=== PATIENT | female | born 2000 | race Caucasian/White ===

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

== ENCOUNTER 2019-04-13 21:16 | Emergency (ER) | payer SELFPAY ==
[2019-04-13 21:50] LABS: RAPID STREP SCREEN Negative (Negative)
--- NOTE | 2019-04-13 23:55 | ED Physician Documentation ---
PD HPI HEENT - Stated complaint Stated Complaint: SPOTS ON THROAT - Chief complaint Chief Complaint: Heent - History obtained from History obtained from: Patient - History of Present Illness Timing - onset: How many weeks ago (1) Timing - details: Gradual onset Location: Throat Improves: Nothing Worsens: Swalllowing Associated symptoms: Fever (Tmax 102, but this was last week; hasn't had fever for at least several days) Recently seen: Not recently seen - Additional information Additional information: c/o 1 week sore throat which initially was associated with fever, but fever has resolved x several days while the sore throat persists. She spat out some blood today Review of Systems Constitutional: reports: Fever Ears: denies: Ear pain Throat: reports: Sore throat Respiratory: denies: Dyspnea, Cough Skin: denies: Rash PD PAST MEDICAL HISTORY - Past Medical History Cardiovascular: Murmur - Past Surgical History Past Surgical History: No - Present Medications Home Medications: Ambulatory Orders Medication Instructions Recorded Confirmed Etonogestrel [Nexplanon] 68 mg SQ ONCE 04/13/19 04/13/19 - Allergies Allergies/Adverse Reactions: Allergies Allergy/AdvReac Type Severity Reaction Status Date / Time No Known Drug Allergies Allergy Verified 04/13/19 21:30 - Social History Does the pt smoke?: No Smoking Status: Former smoker Does the pt drink ETOH?: No Does the pt have substance abuse?: No - Immunizations Immunizations are current?: Yes PD ED PE NORMAL - Vitals Vital signs reviewed: Yes - General General: Alert and oriented X 3, No acute distress, Well developed/nourished - HEENT HEENT: Ears normal, Moist mucous membranes - Neck Neck: Supple, no meningeal sign - Cardiac Cardiac: RRR, No murmur - Respiratory Respiratory: No respiratory distress, Clear bilaterally PD ED PE EXPANDED - HEENT HEENT: Swollen tonsils (mild, bilateral), Tonsillar exudate (moderate, bilaterally) Results - Vitals Vitals: Vital Signs - 24 hr 04/13/19 04/14/19 21:24 00:30 Temperature 36.7 C 36.7 C Heart Rate 84 96 Respiratory 16 16 Rate Blood Pressure 132/83 H 151/101 H O2 Saturation 100 97 Oxygen O2 Source Room air - Labs Labs: Laboratory Tests 04/13/19 21:33 Group A Strep Rapid Negative PD MEDICAL DECISION MAKING - ED course Complexity details: reviewed results, considered differential, d/w patient ED course: rapid strep results negative. We discussed option of one-time dose of steroid (decadron), but she declines this. I also discussed other possible causes such as mononucleosis, other viruses, and other bacterial causes. I explained that the swab will be cultured and she will be called if it results positive. We discussed option of mono test, but she declines this. Departure - Departure Disposition: 01 Home, Self Care Clinical Impression: Pharyngitis Condition: Good Instructions: ED Pharyngitis Viral Report Pending Follow-Up: Leia Thompson ARNP [Primary Care Provider] - Discharge Date/Time: 04/14/19 00:20
[2019-04-14 00:31] VITALS: BP 151/101
== END 2019-04-14 00:20 | disposition home or self-care (01) ==
LOC: ED 21:16
DX: J02.9 Acute pharyngitis, unspecified (principal); Z87.891 Personal history of nicotine dependence
CPT/HCPCS: 87070; 87430; 99282; 99283

== ENCOUNTER 2019-04-17 08:00 | Outpatient (CLI) | payer MEDICAID ==
[2019-04-17 17:15] LABS: BASOPHILS % (AUTO) 0.3 %; EOSINOPHILS % (AUTO) 0.6 %; HGB - HEMOGLOBIN 12.9 g/dL (12.0-16.0); LYMPHOCYTES # (AUTO) 1.8 10^3/uL (1.5-3.5); LYMPHOCYTES % (AUTO) 25.2 %; MEAN CORPUSCULAR HGB CONC 31.6 g/dL (32.0-36.0); MEAN CORPUSCULAR VOLUME 88.5 fL (81.0-99.0); MEAN PLATELET VOLUME 9.5 fL (7.9-10.8); MONOCYTES # (AUTO) 0.5 10^3/uL (0.0-1.0); MONOCYTES % (AUTO) 6.8 %; NEUTROPHILS # (AUTO) 4.7 10^3/uL (1.5-6.6); NEUTROPHILS % (AUTO) 66.8 %; PLT - PLATELET COUNT 382 10^3/uL (130-450); RED BLOOD COUNT 4.61 10^6/uL (4.20-5.40); RED CELL DISTRIBUTION WIDTH 13.2 % (12.0-15.0); WHITE BLOOD COUNT 7.1 x10^3/uL (4.8-10.8)
[2019-04-17 18:18] LABS: ALBUMIN 4.6 g/dL (3.2-5.5); ALBUMIN/GLOBULIN RATIO 1.4 (1.0-2.2); ALKALINE PHOSPHATASE 43 IU/L (42-121); ALT ALANINE AMINOTRANSFERASE 18 IU/L (10-60); AST ASPARTATE AMINOTRANSFERASE 18 IU/L (10-42); BILIRUBIN,TOTAL 0.6 mg/dL (0.2-1.0); BUN - BLOOD UREA NITROGEN 14 mg/dL (6-20); CALCIUM 9.1 mg/dL (8.5-10.3); CARBON DIOXIDE - CO2 26 mmol/L (21-32); CHLORIDE 102 mmol/L (101-111); CREATININE 0.8 mg/dL (0.4-1.0); GFR - MDRD 92 (>89); GLUCOSE 120 mg/dL (70-100); SODIUM 135 mmol/L (135-145)
[2019-04-17 18:20] LABS: CRP - C-REACTIVE PROTEIN < 1.0 mg/dL (0-1.0)
== END 2019-04-17 23:59 | disposition home or self-care (01) ==
LOC: LAB.S 08:00
PROVIDERS: ATTEND Physician Assistant Medical
DX: J02.9 Acute pharyngitis, unspecified (principal); R53.82 Chronic fatigue, unspecified
CPT/HCPCS: 36415; 80053; 82728; 85025; 85651; 86140; 86308; 86665

== ENCOUNTER 2019-04-20 14:40 | Emergency (ER) | payer MEDICAID ==
[2019-04-20 14:50] VITALS: BP 135/89
--- NOTE | 2019-04-20 15:03 | ED Physician Documentation ---
History of Present Illness - Stated complaint Stated Complaint: THROAT SWELLING - Chief complaint Chief Complaint: Heent - Additonal information Additional information: This is a 18-year-old female presents with tonsil swelling which is been ongoing for a month. She started with fever cough and sore throat, and her other symptoms have gotten better but her sore throat has persisted and she has continuous swelling in the back of her throat. She is also noticed some white spots on her tonsils. She had testing for strep which is reportedly negative and also mono testing which was lying. Her throat is still quite sore so she returns to the emergency department. Review of Systems Constitutional: denies: Fever Throat: reports: Sore throat PD PAST MEDICAL HISTORY - Past Medical History Cardiovascular: Murmur - Past Surgical History Past Surgical History: No - Present Medications Home Medications: Ambulatory Orders Medication Instructions Recorded Confirmed Etonogestrel [Nexplanon] 68 mg SQ ONCE 04/13/19 04/20/19 Amoxicillin 500 mg PO BID #20 capsule 04/20/19 Dexamethasone 10 mg PO ONCE #5 tablet 04/20/19 - Allergies Allergies/Adverse Reactions: Allergies Allergy/AdvReac Type Severity Reaction Status Date / Time No Known Drug Allergies Allergy Verified 04/20/19 14:50 - Social History Does the pt smoke?: No Smoking Status: Never smoker Does the pt drink ETOH?: No Does the pt have substance abuse?: No - Immunizations Immunizations are current?: Yes PD ED PE NORMAL - Vitals Vital signs reviewed: Yes - General General: Alert and oriented X 3 - HEENT HEENT: Other (Tonsils are 3+ erythematous edematous with exudate. They are symmetric and uvula is midline) - Neck Neck: Supple, no meningeal sign - Cardiac Cardiac: RRR - Respiratory Respiratory: No respiratory distress - Extremities Extremities: No deformity - Neuro Neuro: Alert and oriented X 3 Results - Vitals Vitals: Vital Signs - 24 hr 04/20/19 14:46 Temperature 36.8 C Heart Rate 78 Respiratory 18 Rate Blood Pressure 135/89 H O2 Saturation 98 Oxygen O2 Source Room air PD MEDICAL DECISION MAKING - ED course ED course: Patient presents with persistent tonsillitis, she did have negative strep recently but she states that a swab was more in her mouth and on the back of her throat. I reviewed the microbiology which showed mixed oral kenneth. She has significant tonsillar edema with exudates, and given her overall clinical picture I am concerned for bacterial tonsillitis. Given the persistence of her symptoms for multiple weeks I think that she warrants a course of antibiotics, I prescribed amoxicillin. I also prescribed her a dose of dexamethasone. She has no signs of peritonsillar abscess or more serious infection at this time. I discussed return precautions, and PCP follow-up and patient was discharged home Departure - Departure Disposition: 01 Home, Self Care Clinical Impression: Pharyngitis Qualifiers: Pharyngitis/tonsillitis etiology: unspecified etiology Qualified Code(s): J02.9 - Acute pharyngitis, unspecified Condition: Good Instructions: ED Strep Pharyngitis Poss Follow-Up: Leia Thompson ARNP [Primary Care Provider] - (With any persistent symptoms) Prescriptions: Amoxicillin 500 mg PO BID #20 capsule Dexamethasone 10 mg PO ONCE #5 tablet Comments: You appear to have a tonsillitis. Given that it has not improved, we will treat with antibiotics for what appears to be a bacterial infection. I am prescribing amoxicillin as well as a steroid. If you are having worsening symptoms such as changes in your voice, swelling on one side of your throat or neck, or other concerning symptoms return to the emergency department.
== END 2019-04-20 15:24 | disposition home or self-care (01) ==
LOC: ED 14:40
DX: J03.90 Acute tonsillitis, unspecified (principal)
CPT/HCPCS: 99282; 99284

== ENCOUNTER 2019-11-24 21:43 | Outpatient (CLI) | payer MEDICAID | END 2019-11-24 21:44 | disposition critical access hospital (66) | LOC: EMS 21:43 | PROVIDERS: ATTEND Surgery | DX: R51 Headache (principal); R11.2 Nausea with vomiting, unspecified | CPT/HCPCS: A0425; A0429 ==

== ENCOUNTER 2019-11-24 22:07 | Emergency (ER) | payer MEDICAID ==
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
[2019-11-24] MEDS ORDERED: SODIUM CHLORIDE 0.9% 1,000 ML IV STA (23:14)
[2019-11-24] MEDS ORDERED: ONDANSETRON 4 MG/2 ML VIAL IVP STA (23:14)
[2019-11-24] MEDS ORDERED: KETOROLAC 30 MG/ML VIAL IVP STA (23:15)
[2019-11-24 23:36] LABS: BASOPHILS % (AUTO) 0.4 %; HGB - HEMOGLOBIN 13.1 g/dL (12.0-16.0); LYMPHOCYTES # (AUTO) 1.1 10^3/uL (1.5-3.5); MEAN CORPUSCULAR HEMOGLOBIN 29.2 pg (27.0-31.0); MEAN CORPUSCULAR HGB CONC 34.1 g/dL (32.0-36.0); MEAN CORPUSCULAR VOLUME 85.7 fL (81.0-99.0); MEAN PLATELET VOLUME 9.1 fL (7.9-10.8); MONOCYTES # (AUTO) 0.4 10^3/uL (0.0-1.0); MONOCYTES % (AUTO) 3.8 %; NEUTROPHILS % (AUTO) 85.5 %; PLT - PLATELET COUNT 349 10^3/uL (130-450); RED BLOOD COUNT 4.48 10^6/uL (4.20-5.40); RED CELL DISTRIBUTION WIDTH 12.5 % (12.0-15.0); WHITE BLOOD COUNT 10.6 x10^3/uL (4.8-10.8)
[2019-11-24 23:49] LABS: ALBUMIN 4.5 g/dL (3.2-5.5); ALBUMIN/GLOBULIN RATIO 1.2 (1.0-2.2); BILIRUBIN,TOTAL 0.5 mg/dL (0.2-1.0); CALCIUM 9.1 mg/dL (8.5-10.3); CREATININE 0.9 mg/dL (0.4-1.0); TOTAL PROTEIN 8.4 g/dL (6.7-8.2)
[2019-11-25 01:30] LABS: BILIRUBIN,URINE NEGATIVE (NEGATIVE); GLUCOSE, URINE (UA) NEGATIVE (NEGATIVE); KETONES,URINE (UA) 15 mg/dL (NEGATIVE); LEUKOCYTE ESTERASE, URINE NEGATIVE (NEGATIVE); NITRITE,URINE NEGATIVE (NEGATIVE); OCCULT BLOOD,URINE TRACE-LYSE (NEGATIVE); PROTEIN,URINE NEGATIVE (NEGATIVE); UROBILINOGEN,URINE 0.2 (NORMAL) E.U./dL (NORMAL)
[2019-11-25 01:32] LABS: CLARITY,URINE CLEAR (CLEAR); HCG UR QUAL NEGATIVE
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
[2019-11-25 08:06] VITALS: BP 143/66
== END 2019-11-25 10:15 | disposition home or self-care (01) ==
LOC: EDUNIT# → ED 22:07
DX: R51 Headache (principal); Y04.8XXA Assault by other bodily force, initial encounter; Y92.009 Unspecified place in unspecified non-institutional (private) residence as the place of occurrence of the external cause; Z59.0 Homelessness
CPT/HCPCS: 36415; 70450; 80053; 80320; 81001; 81003; 81025; 83690; 85025; 87086; 96361; 96374; 96375; 99284

== ENCOUNTER 2020-03-11 15:40 | Outpatient (CLI) | payer MEDICAID | END 2020-03-11 23:59 | disposition home or self-care (01) | LOC: LAB.R 15:40 | PROVIDERS: ATTEND Physician Assistant | DX: J03.90 Acute tonsillitis, unspecified (principal); Z20.828 Contact with and (suspected) exposure to other viral communicable diseases | CPT/HCPCS: 87070 ==

== ENCOUNTER 2020-04-16 14:30 | Outpatient (CLI) | payer MEDICAID ==
[2020-04-16 19:54] LABS: CANDIDA GROUP DNA POSITIVE (NEGATIVE); CANDIDA KRUSEI DNA NEGATIVE (NEGATIVE); TRICHOMONAS VAGINALIS DNA NEGATIVE (NEGATIVE)
[2020-04-16 22:20] LABS: TRICHOMONAS VAGINALIS DNA UNRESOLVED (NEGATIVE)
== END 2020-04-16 23:59 | disposition home or self-care (01) ==
LOC: LAB.R 14:30
PROVIDERS: ATTEND Family Medicine
DX: R21 Rash and other nonspecific skin eruption (principal)
CPT/HCPCS: 81599; 87255; 87491; 87591; 87661; 87801

== ENCOUNTER 2020-08-05 09:59 | Emergency (ER) | payer MEDICAID ==
--- OUTSIDE RECORDS SUMMARY | 2020-08-05 10:32 | EXTERNAL MEDICAL SUMMARY RPT | Continuity of Care Document ---
:2000 Demographics Phone Unavailable Preferred Language Unknown Marital Status Unknown Orthodoxy Affiliation Unknown Race Unknown Ethnic Group Unknown Author Organization [facility] Address [address] [id number] Phone Social History date description facility [id number]
--- NOTE | 2020-08-05 10:56 | XRAY Report ---
PROCEDURE: Ankle 3 View RT INDICATIONS: ANKLE PAIN TECHNIQUE: 3 views of the ankle were acquired. COMPARISON: 04/25/2017 FINDINGS: Bones: No fractures or dislocations. Ankle mortise is normally aligned. No suspicious bony lesions . Soft tissues: No tibiotalar joint effusion. Achilles tendon appears normal. Lateral ankle soft tis haris swelling is seen. IMPRESSION: No acute ankle fracture or dislocation. Lateral ankle soft tissue swelling. Reviewed by: Jose De Jesus Ashley MD on 08/05/2020 10:55 AM PDT Approved by: Jose De Jesus Ashley MD on 08/05/2020 10:55 AM PDT Station ID: [id number]
--- NOTE | 2020-08-05 12:08 | ED Physician Documentation ---
History of Present Illness - Stated complaint Stated Complaint: RT ANKLE INJ - Chief complaint Chief Complaint: Trauma Ext - History obtained from History obtained from: Patient - Additonal information Additional information: 19-year-old woman presents with right outer ankle swelling after rolling it while walking today. She was unable to bear weight immediately afterward and is unable to bear weight now. Pain is constant, sudden onset, nonradiating localized to the external ankle, worse with range of motion. Denies numbness or weakness.Denies foot pain or other injury. Review of Systems Skin: denies: Lesions, Abrasion (s) Musculoskeletal: reports: Extremity pain, Joint pain, Extremity swelling Neurologic: denies: Focal weakness, Numbness PD PAST MEDICAL HISTORY - Past Medical History Cardiovascular: Murmur Psych: Depression, Eating disorder - Past Surgical History Past Surgical History: No - Present Medications Home Medications: Ambulatory Orders Medication Instructions Recorded Confirmed Etonogestrel [Nexplanon] 68 mg SQ ONCE 04/13/19 04/20/19 Amoxicillin 500 mg PO BID #20 capsule 04/20/19 Dexamethasone 10 mg PO ONCE #5 tablet 04/20/19 Ondansetron Odt [Zofran] 4 mg TL Q6H PRN #10 tablet 11/25/19 - Allergies Allergies/Adverse Reactions: Allergies Allergy/AdvReac Type Severity Reaction Status Date / Time No Known Drug Allergies Allergy Verified 08/05/20 10:22 - Social History Does the pt smoke?: Yes Smoking Status: Current every day smoker Does the pt drink ETOH?: No Does the pt have substance abuse?: No Substance Use and Type: Marijuana - Immunizations Immunizations are current?: Yes PD ED PE NORMAL - Vitals Vital signs reviewed: Yes - General General: Alert and oriented X 3, No acute distress, Well developed/nourished - Extremities Extremities: No deformity, Other (Swelling to right lateral malleolus. Posterior right lateral mall tender to palpation. Tender with range of motion of the ankle. Otherwise nontender. Unable to bear weight.) - Neuro Neuro: Alert and oriented X 3, No motor deficit, No sensory deficit - Psych Psych: Normal mood, Normal affect Results - Vitals Vitals: Vital Signs - 24 hr 08/05/20 10:20 Temperature 36.0 C L Heart Rate 75 Respiratory 20 Rate Blood Pressure 137/91 H O2 Saturation 96 Oxygen O2 Source Room air PD MEDICAL DECISION MAKING - ED course ED course: 19-year-old woman presents with moderate severity ankle swelling s/p injury. X- ray without any evidence of fracture however We will have her follow-up with orthopedics in 1 week for repeat x-ray. Strict return precautions given. Splint and crutches provided. Departure - Departure Disposition: 01 Home, Self Care Clinical Impression: Ankle injury Condition: Good Instructions: ED Sprain Ankle W X Ray Follow-Up: Brandon Arboleda MD [Provider Admit Priv/Credential] - Comments: You were seen in the emergency department for an ankle injury. Your x-ray did not show a break in the bone, but sometimes it can miss fractures. You should wear a splint and crutches until you follow-up with orthopedics in 1 week. Return to the emergency department if you have any new or worsening symptoms or other concerns.
[2020-08-05 12:54] VITALS: BP 147/84
== END 2020-08-05 12:54 | disposition home or self-care (01) ==
LOC: ED 09:59
DX: S99.911A Unspecified injury of right ankle, initial encounter (principal); X50.1XXA Overexertion from prolonged static or awkward postures, initial encounter; Y93.01 Activity, walking, marching and hiking; F17.200 Nicotine dependence, unspecified, uncomplicated
CPT/HCPCS: 99282; 99283

== ENCOUNTER 2020-11-26 14:01 | Emergency (ER) | payer MEDICAID ==
[2020-11-26 15:51] LABS: BASOPHILS % (AUTO) 0.5 %; EOSINOPHILS # (AUTO) 0.2 10^3/uL (0.0-0.7); EOSINOPHILS % (AUTO) 2.7 %; HGB - HEMOGLOBIN 12.9 g/dL (12.0-16.0); LYMPHOCYTES # (AUTO) 2.9 10^3/uL (1.5-3.5); LYMPHOCYTES % (AUTO) 33.3 %; MEAN CORPUSCULAR HEMOGLOBIN 28.4 pg (27.0-31.0); MEAN CORPUSCULAR HGB CONC 32.3 g/dL (32.0-36.0); MEAN CORPUSCULAR VOLUME 87.9 fL (81.0-99.0); MEAN PLATELET VOLUME 9.2 fL (7.9-10.8); MONOCYTES # (AUTO) 0.6 10^3/uL (0.0-1.0); MONOCYTES % (AUTO) 6.5 %; NEUTROPHILS # (AUTO) 4.9 10^3/uL (1.5-6.6); NEUTROPHILS % (AUTO) 56.6 %; PLT - PLATELET COUNT 355 10^3/uL (130-450); RED BLOOD COUNT 4.55 10^6/uL (4.20-5.40); RED CELL DISTRIBUTION WIDTH 13.4 % (12.0-15.0); WHITE BLOOD COUNT 8.6 x10^3/uL (4.8-10.8)
[2020-11-26 15:59] LABS: CALCIUM 9.2 mg/dL (8.5-10.3); CREATININE 0.8 mg/dL (0.4-1.0)
--- NOTE | 2020-11-26 15:59 | ED Physician Documentation ---
History of Present Illness - Stated complaint Stated Complaint: SWELLING FEET - Chief complaint Chief Complaint: Ext Problem - History obtained from History obtained from: Patient, Family - History of Present Illness Timing: How many days ago (4) - Additonal information Additional information: 20-year-old homeless female reports that over the past 4 days she has had swelling to both of her lower extremities. She started to feel some stretching pain and the skin is burning a little bit. She is uncertain why this is happened to her. She has not had this happen to her previously. She does sleep in her car with her feet in the dependent position. She denies any shortness of breath associated with this she denies any other intercurrent illness. She is worried about being late on her menstrual cycle. Review of Systems Constitutional: denies: Fever Eyes: denies: Decreased vision Ears: denies: Ear pain Nose: denies: Congestion Throat: denies: Sore throat Cardiac: reports: Pedal edema. denies: Chest pain / pressure, Palpitations, Calf pain Respiratory: denies: Dyspnea, Cough GI: denies: Abdominal Pain, Nausea, Vomiting, Constipation, Diarrhea : denies: Dysuria, Frequency PD PAST MEDICAL HISTORY - Past Medical History Cardiovascular: Murmur Psych: Depression, Eating disorder - Past Surgical History Past Surgical History: No - Present Medications Home Medications: Ambulatory Orders Medication Instructions Recorded Confirmed Etonogestrel [Nexplanon] 68 mg SQ ONCE 04/13/19 04/20/19 Amoxicillin 500 mg PO BID #20 capsule 04/20/19 Dexamethasone 10 mg PO ONCE #5 tablet 04/20/19 Ondansetron Odt [Zofran] 4 mg TL Q6H PRN #10 tablet 11/25/19 Furosemide [Lasix] 20 mg PO DAILY #10 tablet 11/26/20 - Allergies Allergies/Adverse Reactions: Allergies Allergy/AdvReac Type Severity Reaction Status Date / Time No Known Drug Allergies Allergy Verified 11/26/20 14:14 - Social History Does the pt smoke?: Yes Smoking Status: Current every day smoker Does the pt drink ETOH?: No Does the pt have substance abuse?: No - Immunizations Immunizations are current?: Yes PD ED PE NORMAL - Vitals Vital signs reviewed: Yes (Hypertensive) - General General: Alert and oriented X 3, No acute distress, Well developed/nourished - HEENT HEENT: Atraumatic, PERRL, EOMI - Neck Neck: Supple, no meningeal sign, No bony TTP - Cardiac Cardiac: RRR, Other (2 out of 6 holosystolic murmur left sternal border) - Respiratory Respiratory: No respiratory distress, Clear bilaterally - Abdomen Abdomen: Normal bowel sounds, Soft, Non tender, Non distended, No organomegaly - Back Back: No CVA TTP, No spinal TTP - Derm Derm: Normal color, Warm and dry, No rash - Extremities Extremities: No deformity, Other (There is pitting pedal edema bilaterally non- tender to the feet. ) - Neuro Neuro: Alert and oriented X 3, application systems administrator 2-12 intact, No motor deficit, No sensory deficit, Normal speech Eye Opening: Spontaneous Motor: Obeys Commands Verbal: Oriented GCS Score: 15 - Psych Psych: Normal mood, Normal affect Results - Vitals Vitals: Vital Signs - 24 hr 11/26/20 14:14 Temperature 36.5 C Heart Rate 80 Respiratory 16 Rate Blood Pressure 150/100 H O2 Saturation 100 Oxygen O2 Source Room air - Labs Labs: Laboratory Tests 11/26/20 11/26/20 11/26/20 15:47 15:47 16:00 WBC 8.6 RBC 4.55 Hgb 12.9 Hct 40.0 MCV 87.9 MCH 28.4 MCHC 32.3 RDW 13.4 Plt Count 355 MPV 9.2 Neut # (Auto) 4.9 Lymph # (Auto) 2.9 Scurry # (Auto) 0.6 Eos # (Auto) 0.2 Baso # (Auto) 0.0 Absolute Nucleated RBC 0.00 Nucleated RBC % 0.0 Sodium 136 Potassium 4.0 Chloride 102 Carbon Dioxide 24 Anion Gap 10.0 BUN 11 Creatinine 0.8 Estimated GFR (MDRD) 91 Glucose 88 Calcium 9.2 Urine Color YELLOW Urine Clarity CLEAR Urine pH 7.0 Ur Specific [place] 1.025 Urine Protein NEGATIVE Urine Glucose (UA) NEGATIVE Urine Ketones NEGATIVE Urine Occult Blood TRACE-INTA Urine Nitrite NEGATIVE Urine Bilirubin NEGATIVE Urine Urobilinogen 1 (NORMAL) Ur Leukocyte Esterase NEGATIVE Ur Microscopic Review NOT INDICATED Urine Culture Comments NOT INDICATED Urine HCG, Qual NEGATIVE PD MEDICAL DECISION MAKING - ED course Complexity details: reviewed results, re-evaluated patient, considered differential, d/w patient, d/w family ED course: 20-year-old female with swelling to both of her lower extremities appears to have dependent edema. Blood work is pending as well as a test.Blood work is unremarkable we will place the patient on a short course of some Lasix and instruct her to keep her feet elevated. Departure - Departure Disposition: 01 Home, Self Care Clinical Impression: Dependent edema Condition: Stable Instructions: ED Edema Legs Bilateral, ED Diet High Potassium Follow-Up: Leia Thompson ARNP [Primary Care Provider] - Prescriptions: Furosemide [Lasix] 20 mg PO DAILY #10 tablet Comments: Today it appears that you have some dependent edema to your feet. This occurs when you have your feet below your heart for too long during the day. We are prescribing a short course of some Lasix. This medication will make you urinate excessively. You can become dehydrated by taking this medication. Keep your feet elevated and take this medication and expect to have improvement in your swelling over the next several days. Do not take this medicine continuously for more than 4 days at a time and supplement your diet with foods high in potassium while you are taking this medication. Cantaloupe potatoes and bananas all have high potassium content.
[2020-11-26 16:12] LABS: BILIRUBIN,URINE NEGATIVE (NEGATIVE); GLUCOSE, URINE (UA) NEGATIVE (NEGATIVE); KETONES,URINE (UA) NEGATIVE (NEGATIVE); LEUKOCYTE ESTERASE, URINE NEGATIVE (NEGATIVE); NITRITE,URINE NEGATIVE (NEGATIVE); OCCULT BLOOD,URINE TRACE-INTA (NEGATIVE); PROTEIN,URINE NEGATIVE (NEGATIVE); UROBILINOGEN,URINE 1 (NORMAL) E.U./dL (NORMAL)
[2020-11-26 16:13] LABS: CLARITY,URINE CLEAR (CLEAR); HCG UR QUAL NEGATIVE
[2020-11-26 16:39] VITALS: BP 133/85
== END 2020-11-26 16:39 | disposition home or self-care (01) ==
LOC: ED 14:01
DX: R60.0 Localized edema (principal); N91.2 Amenorrhea, unspecified; F17.200 Nicotine dependence, unspecified, uncomplicated; Z59.0 Homelessness
CPT/HCPCS: 36415; 80048; 81001; 81003; 81025; 85025; 87086; 99283; 99284

== ENCOUNTER 2020-12-15 09:34 | Outpatient (CLI) | payer MEDICAID ==
[2020-12-15 12:24] LABS: BASOPHILS % (AUTO) 0.5 %; EOSINOPHILS # (AUTO) 0.3 10^3/uL (0.0-0.7); EOSINOPHILS % (AUTO) 3.4 %; HCT - HEMATOCRIT 41.2 % (37.0-47.0); HGB - HEMOGLOBIN 13.6 g/dL (12.0-16.0); LYMPHOCYTES # (AUTO) 2.4 10^3/uL (1.5-3.5); LYMPHOCYTES % (AUTO) 32.8 %; MEAN CORPUSCULAR HEMOGLOBIN 28.9 pg (27.0-31.0); MEAN CORPUSCULAR VOLUME 87.5 fL (81.0-99.0); MEAN PLATELET VOLUME 9.7 fL (7.9-10.8); MONOCYTES # (AUTO) 0.6 10^3/uL (0.0-1.0); MONOCYTES % (AUTO) 7.5 %; NEUTROPHILS # (AUTO) 4.1 10^3/uL (1.5-6.6); NEUTROPHILS % (AUTO) 55.5 %; PLT - PLATELET COUNT 435 10^3/uL (130-450); RED BLOOD COUNT 4.71 10^6/uL (4.20-5.40); RED CELL DISTRIBUTION WIDTH 12.9 % (12.0-15.0); WHITE BLOOD COUNT 7.3 x10^3/uL (4.8-10.8)
[2020-12-15 12:39] LABS: ALBUMIN 4.2 g/dL (3.2-5.5); ALBUMIN/GLOBULIN RATIO 1.1 (1.0-2.2); BILIRUBIN,TOTAL 0.6 mg/dL (0.2-1.0); CALCIUM 9.4 mg/dL (8.5-10.3); CREATININE 0.9 mg/dL (0.4-1.0); TOTAL PROTEIN 8.1 g/dL (6.7-8.2)
== END 2020-12-15 09:35 | disposition home or self-care (01) ==
LOC: LAB.N 09:34
PROVIDERS: ATTEND Nurse Practitioner
DX: R60.0 Localized edema (principal)
CPT/HCPCS: 36415; 80053; 83880; 85025

== ENCOUNTER 2020-12-20 14:02 | Outpatient (CLI) | payer MEDICAID | END 2020-12-20 23:59 | disposition home or self-care (01) | LOC: LAB.N 14:02 | PROVIDERS: ATTEND Nurse Practitioner | DX: R07.0 Pain in throat (principal); Z20.822 Contact with and (suspected) exposure to COVID-19 | CPT/HCPCS: 87070; 87077 ==

== ENCOUNTER 2021-09-29 17:59 | Outpatient (CLI) | payer MEDICAID ==
--- NOTE | 2021-09-30 03:04 | Ultrasound Report ---
PROCEDURE: OB Detailed Eval INDICATIONS: SUPERVISION OF OUTSIDE/PRIOR DATING DATA: Last menstrual period (LMP): Unsure. First dating scan (date and location): 08/01/2021. Estimated date of delivery (MIKO) from first dating scan: 02/04/2022. The below data below was generated using the given MIKO of 02/04/2022 TECHNIQUE: Real-time scanning was performed of the fetus, with image documentation and biometric measurements. COMPARISON: None available. FINDINGS: Evaluation limited due to maternal body habitus. General: A single living intrauterine gestation is present. Presentation: Vertex Placenta: Placental position is anterior, without previa. Amniotic fluid index: 20.1 cm, within normal limits for gestational age. Largest pocket: 6.9 cm. heart rate: 147 beats per minute. Maternal cervical canal: Appears closed. biometrics: Biparietal diameter: 5.1 cm, 21 weeks 3 days Head circumference: 20.3 cm, 22 weeks 3 days Abdominal circumference: 18.4 cm, 23 weeks 1 day Femur length: 3.8 cm, 22 weeks 1 day Estimated gestational age from initial scan: 21 weeks 5 days Composite gestational age from present scan: 21 weeks 6 days Estimated weight and percentile: 523 g, 88th percentile Measurement variability in biometric dating: +/- 10 days from 12-20 weeks gestation, +/- 2 weeks from 20-30 weeks gestation, +/- 3 weeks at 30 weeks gestation or later. Anatomic survey: Neuro: Ventricles are normal at less than 10 mm. Cisterna magna is normal at 3-11 mm. Cerebellum i s normal in size and morphology. Nuchal skin fold: Normal at less than 6 mm between 14 and 20 weeks gestational age. Face: Nose and lips are noted. Facial profile is not well seen. Spine: No evidence for spina bifida. Heart: 4-chambered heart is present, with normal ventricular outflow tracts. Diaphragm: Diaphragm is intact. Stomach: Left-sided stomach is present. Kidneys: No hydronephrosis. Normal is less than 5 mm in 2nd trimester, less than 7 mm in 3rd trimester. Cord: 3 vessel cord has marginal placental cord insertion. Bladder: Normal in size. Extremities: All 4 extremities are visualized. IMPRESSION: 1. Single living intrauterine demonstrating interval growth with estimated weight at the 88th percentile. The findings may reflect developing macrosomia and clinical follow-up is recomme nded. 2. facial profile not well seen due to maternal body habitus. Recommend repeat study in 2-4 wee ks if clinically indicated. 2. Marginal placental cord insertion. Reviewed by: Alonso Gonzalez MD on 09/30/2021 3:03 AM PDT Approved by: Alonso Gonzalez MD on 09/30/2021 3:03 AM PDT Station ID: [id number]
== END 2021-09-29 18:00 | disposition home or self-care (01) ==
LOC: DI 17:59
PROVIDERS: ATTEND Obstetrics & Gynecology
DX: Z34.02 Encounter for supervision of normal first pregnancy, second trimester (principal)

== ENCOUNTER 2021-11-03 16:54 | Outpatient (CLI) | payer MEDICAID ==
--- NOTE | 2021-11-04 02:50 | Ultrasound Report ---
PROCEDURE: OB F/U or Repeat INDICATIONS: EXCESSIVE GROWTH OUTSIDE/PRIOR DATING DATA: Last menstrual period (LMP): Unsure. First dating scan (date and location): 08/01/2021. Estimated date of delivery (MIKO) from first dating scan: 02/04/2022. The below data below was generated using the working MIKO of 02/04/2022 TECHNIQUE: Real-time scanning was performed of the fetus, with image documentation and biometric measurements. COMPARISON: 09/29/2021. FINDINGS: General: A single living intrauterine gestation is present. Presentation: Vertex Placenta: Placental position is anterior, without previa. Amniotic fluid index: 16.5 cm, within normal limits for gestational age. heart rate: 133 beats per minute. Maternal cervical canal: Not well seen. biometrics: Biparietal diameter: 6.6 cm, 26 weeks 4 days Head circumference: 26.1 cm, 28 weeks 3 days Abdominal circumference: 23.1 cm, 27 weeks 3 days Femur length: 5.5 cm, 28 weeks 6 days Estimated gestational age from initial scan: 26 weeks 5 days Composite gestational age from present scan: 27 weeks 6 days Estimated weight and percentile: 1153 g, 86th percentile Measurement variability in biometric dating: +/- 10 days from 12-20 weeks gestation, +/- 2 weeks from 20-30 weeks gestation, +/- 3 weeks at 30 weeks gestation or more. IMPRESSION: 1. Single living intrauterine demonstrating interval growth with estimated weight at the 86th percentile. Reviewed by: Alonso Porras MD on 11/04/2021 2:48 AM PDT Approved by: Alonso Porras MD on 11/04/2021 2:48 AM PDT Station ID: [id number]
== END 2021-11-03 16:55 | disposition home or self-care (01) ==
LOC: DI 16:54
PROVIDERS: ATTEND Nurse Practitioner
DX: O36.62X0 Maternal care for excessive fetal growth, second trimester, not applicable or unspecified (principal); Z3A.27 27 weeks gestation of pregnancy

== ENCOUNTER 2021-11-10 09:55 | Outpatient (CLI) | payer MEDICAID ==
[2021-11-10 11:03] LABS: HCT - HEMATOCRIT 31.8 % (37.0-47.0); HGB - HEMOGLOBIN 10.8 g/dL (12.0-16.0); MEAN CORPUSCULAR HEMOGLOBIN 30.5 pg (27.0-31.0); MEAN CORPUSCULAR VOLUME 89.8 fL (81.0-99.0); MEAN PLATELET VOLUME 9.3 fL (7.9-10.8); RED BLOOD COUNT 3.54 10^6/uL (4.20-5.40); RED CELL DISTRIBUTION WIDTH 13.9 % (12.0-15.0); WHITE BLOOD COUNT 8.2 x10^3/uL (4.8-10.8)
== END 2021-11-10 09:56 | disposition home or self-care (01) ==
LOC: LAB 09:55
PROVIDERS: ATTEND Nurse Practitioner
DX: Z34.00 Encounter for supervision of normal first pregnancy, unspecified trimester (principal); Z36.89 Encounter for other specified antenatal screening
CPT/HCPCS: 36415; 82950; 85027

== ENCOUNTER 2022-01-07 09:07 | Outpatient (CLI) | payer MEDICAID ==
[2022-01-07 09:35] VITALS: BP 116/68
[2022-01-07 10:23] LABS: BILIRUBIN,URINE NEGATIVE (NEGATIVE); GLUCOSE, URINE (UA) NEGATIVE (NEGATIVE); KETONES,URINE (UA) NEGATIVE (NEGATIVE); LEUKOCYTE ESTERASE, URINE NEGATIVE (NEGATIVE); NITRITE,URINE NEGATIVE (NEGATIVE); OCCULT BLOOD,URINE NEGATIVE (NEGATIVE); PROTEIN,URINE NEGATIVE (NEGATIVE); UROBILINOGEN,URINE 1 (NORMAL) E.U./dL (NORMAL)
[2022-01-07 10:26] LABS: CLARITY,URINE CLEAR (CLEAR)
[2022-01-07 10:30] LABS: BACTERIA,URINE Few /HPF (None Seen); RBC,URINE None Seen /HPF (0-5); SQUAMOUS EPITHELIAL CELL,UR MANY Squamous (<= Few); WBC,URINE 0-3 /HPF (0-5)
[2022-01-07 10:31] LABS: BASOPHILS % (AUTO) 0.1 %; EOSINOPHILS % (AUTO) 0.3 %; HCT - HEMATOCRIT 31.5 % (37.0-47.0); HGB - HEMOGLOBIN 10.4 g/dL (12.0-16.0); LYMPHOCYTES # (AUTO) 1.6 10^3/uL (1.5-3.5); LYMPHOCYTES % (AUTO) 17.4 %; MEAN CORPUSCULAR VOLUME 87.7 fL (81.0-99.0); MEAN PLATELET VOLUME 10.4 fL (7.9-10.8); MONOCYTES # (AUTO) 0.7 10^3/uL (0.0-1.0); MONOCYTES % (AUTO) 7.6 %; NEUTROPHILS # (AUTO) 6.6 10^3/uL (1.5-6.6); PLT - PLATELET COUNT 270 10^3/uL (130-450); RED BLOOD COUNT 3.59 10^6/uL (4.20-5.40); WHITE BLOOD COUNT 8.9 x10^3/uL (4.8-10.8)
[2022-01-07 10:40] LABS: ALBUMIN 3.1 g/dL (3.2-5.5); ALKALINE PHOSPHATASE 121 IU/L (42-121); ALT ALANINE AMINOTRANSFERASE < 10 IU/L (10-60); AST ASPARTATE AMINOTRANSFERASE 14 IU/L (10-42); BILIRUBIN,TOTAL 0.6 mg/dL (0.2-1.0)
--- NOTE | 2022-01-07 10:48 | PROVIDER PROGRESS NOTE ---
Progress Note This 21-year-old primigravida at 36 weeks presented to the labor and delivery with chief complaint of decreased movements and itching on her palms and sole and body surfaces. She states that she felt decreased movement 2 days ago but when she presented to the labor and delivery , she started more movements and nonstress test was reactive. Her charts were reviewed. She was transferred from [place] on September 28 at 21 weeks 4 days gestation. She was referred to [facility] on November 28 for the concern of the cardiac activity and she was informed by them that she did not have to go and see them for that matter. She has high risk factors such as overweight anxiety and depression and marijuana use and previous herpes simplex. She is taking medication for the herpes and depressions and she is doing much better now. She is going to be checked for possible cholestasis by ordering bile acid and liver function test and urinalysis. She was strongly advised to stop smoking marijuana during this and she is going to be scheduled for follow-up nonstress test and biophysical profile on Saturday. She has appointment at the clinic on Saturday.
--- NOTE | 2022-01-07 10:53 | PROCEDURE REPORT ---
- HPI Diagnosis/Indication for NST: Decreased movement Current EDU 02/04/22 Gestation 36 Weeks and 0 Days 1 Para 0 Vital Signs Temperature 98.1 F 01/07/22 09:22 Temperature 98.1 F 01/07/22 09:25 Heart Rate 95 01/07/22 09:25 Respiratory Rate 17 01/07/22 09:25 Blood Pressure 116/68 01/07/22 09:25 O2 Saturation 100 01/07/22 09:25 If not protocol: Oxygen Flow, liters/minute - NST Procedure NST Procedure Start Date 01/07/22 Start Time 09:20 Stop Time 09:50 Vibroacoustic Stimulation Used No Patient States Movement Yes: decreased at home Interpretation of the nonstress test: Reactive Baseline: 135 Variability: Moderate 6-25 Acceleration present lasting more than 15 seconds Discoloration not present Plan: Repeat on Saturday with biophysical profile - Results and Plan Findings/Impression: Reactive Plan: Follow-up nonstress test on Saturday and biophysical profile
[2022-01-07 10:57] LABS: BILIRUBIN,DIRECT < 0.1 mg/dL (0.1-0.5)
== END 2022-01-07 10:50 | disposition home or self-care (01) ==
LOC: WFO 09:07 → FBP 09:15 → WFO 10:50
PROVIDERS: ATTEND Obstetrics & Gynecology
DX: O36.8130 Decreased fetal movements, third trimester, not applicable or unspecified (principal); Z3A.36 36 weeks gestation of pregnancy; O99.323 Drug use complicating pregnancy, third trimester; F12.90 Cannabis use, unspecified, uncomplicated; O98.513 Other viral diseases complicating pregnancy, third trimester; B00.9 Herpesviral infection, unspecified; O99.343 Other mental disorders complicating pregnancy, third trimester; F41.9 Anxiety disorder, unspecified; F32.A Depression, unspecified
CPT/HCPCS: 36415; 59025; 80076; 81001; 82239; 85025; 87086; 99215

== ENCOUNTER 2022-01-07 10:44 | Outpatient (CLI) | payer MEDICAID ==
--- NOTE | 2022-01-07 13:05 | Ultrasound Report ---
PROCEDURE: OB F/U or Repeat INDICATIONS: UTERINE SIZE DATE DISCREPENCY OUTSIDE/PRIOR DATING DATA: Last menstrual period (LMP): Unknown. LMP-based estimated date of delivery (MIKO): Unknown. First dating scan (date and location): 08/01/2021. Estimated date of delivery (MIKO) from first dating scan: 02/04/2022. The below data below was generated using the ultrasound MIKO of 02/04/2022 TECHNIQUE: Real-time scanning was performed of the fetus, with image documentation and biometric measurements. COMPARISON: OB ultrasound 11/03/2021 FINDINGS: General: A single living intrauterine gestation is present. Presentation: Placenta: Placental position is anterior, without previa. Amniotic fluid index: 12.5 cm, within normal limits for gestational age. Largest pocket measures 3. 5 cm. heart rate: 135 beats per minute. Maternal cervical canal: Not measured biometrics: Biparietal diameter: 8.8 cm 35 weeks 5 days Head circumference: 32.6 cm 37 weeks 0 days Abdominal circumference: 35 cm 38 weeks 6 days Femur length: 6.7 cm 34 weeks 4 days Estimated gestational age from initial scan: 36 weeks 0 day Composite gestational age from present scan: 36 weeks 4 days Estimated weight and percentile: 3176 g 85th percentile Measurement variability in biometric dating: +/- 10 days from 12-20 weeks gestation, +/- 2 weeks from 20-30 weeks gestation, +/- 3 weeks at 30 weeks gestation or more. Other: Profile not well seen.. IMPRESSION: Single live intrauterine with ultrasound gestational age today of 36 weeks 4 days. ASHA is within normal limits. Reviewed by: Chantel Wilkins MD on 01/07/2022 1:04 PM PDT Approved by: Chantel Wilkins MD on 01/07/2022 1:04 PM PDT Station ID: [id number]
== END 2022-01-07 10:45 | disposition home or self-care (01) ==
LOC: DI 10:44
PROVIDERS: ATTEND Obstetrics & Gynecology
DX: O26.843 Uterine size-date discrepancy, third trimester (principal); Z3A.36 36 weeks gestation of pregnancy

== ENCOUNTER 2022-01-12 08:00 | Outpatient (CLI) | payer MEDICAID ==
[2022-01-12 23:00] LABS: BACTERIAL VAGINOSIS DNA NEGATIVE (NEGATIVE); CANDIDA GLABRATA DNA NEGATIVE (NEGATIVE); CANDIDA GROUP DNA POSITIVE (NEGATIVE); CANDIDA KRUSEI DNA NEGATIVE (NEGATIVE); TRICHOMONAS VAGINALIS DNA NEGATIVE (NEGATIVE)
[2022-01-13 00:02] LABS: CHLAMYDIA TRACHOMATIS DNA NEGATIVE (NEGATIVE); NEISSERIA GONORRHOEAE DNA NEGATIVE (NEGATIVE); TRICHOMONAS VAGINALIS DNA NEGATIVE (NEGATIVE)
== END 2022-01-12 23:59 | disposition home or self-care (01) ==
LOC: LAB.WC 08:00
PROVIDERS: ATTEND Obstetrics & Gynecology
DX: O23.599 Infection of other part of genital tract in pregnancy, unspecified trimester (principal); Z36.85 Encounter for antenatal screening for Streptococcus B
CPT/HCPCS: 81514; 87491; 87591; 87661; 87797

== ENCOUNTER 2022-01-28 06:56 | Emergency (ER) | payer MEDICAID ==
[2022-01-28] MEDS ORDERED: ALBUTEROL 1 PUFF INH STA (07:18)
--- NOTE | 2022-01-28 07:22 | ED Physician Documentation ---
PD HPI CHEST PAIN - Stated complaint Stated Complaint: SOA/CHEST PRESSURE - Chief complaint Chief Complaint: Resp - History obtained from History obtained from: Patient - Additional information Additional information: Otherwise healthy 21-year-old woman who is 39 weeks as a G1 presents with 3 days of chest pressure associated with cough productive of yellow sputum. Chest pressure is worse at night and not changed by eating. Does not radiate to the back. She is not short of breath. No fevers but has had chills. Took a negative home COVID test but would like it repeated. Review of Systems Constitutional: reports: Chills. denies: Fever (Not sure, she does not have a thermometer at home) Cardiac: reports: Chest pain / pressure. denies: Palpitations, Pedal edema, Calf pain Respiratory: reports: Cough, Wheezing. denies: Dyspnea, Hemoptysis PD PAST MEDICAL HISTORY - Past Medical History Cardiovascular: Murmur Psych: Depression, Eating disorder - Past Surgical History Past Surgical History: No - Present Medications Home Medications: Ambulatory Orders Medication Instructions Recorded Confirmed Etonogestrel [Nexplanon] 68 mg SQ ONCE 04/13/19 04/20/19 Amoxicillin 500 mg PO BID #20 capsule 04/20/19 Dexamethasone 10 mg PO ONCE #5 tablet 04/20/19 Ondansetron Odt [Zofran] 4 mg TL Q6H PRN #10 tablet 11/25/19 Furosemide [Lasix] 20 mg PO DAILY #10 tablet 11/26/20 Albuterol Sulf [Ventolin Hfa 1 - 2 puffs INH Q4HR PRN #1 each 01/28/22 Inhaler] Azithromycin [Zithromax] 1 tab PO DAILY #6 tablet 01/28/22 - Allergies Allergies/Adverse Reactions: Allergies Allergy/AdvReac Type Severity Reaction Status Date / Time No Known Drug Allergies Allergy Verified 01/28/22 07:05 - Social History Does the pt smoke?: Yes Smoking Status: Current every day smoker Does the pt drink ETOH?: No Does the pt have substance abuse?: No - Immunizations Immunizations are current?: Yes PD ED PE NORMAL - Vitals Vital signs reviewed: Yes - General General: Alert and oriented X 3, No acute distress - HEENT HEENT: PERRL, EOMI - Neck Neck: Supple, no meningeal sign, No bony TTP - Cardiac Cardiac: RRR, No murmur - Respiratory Respiratory: Other (Mild expiratory wheezing throughout without other focal findings, nonlabored) - Extremities Extremities: No edema, No calf tenderness / cord - Neuro Neuro: Alert and oriented X 3, Normal speech Results - Vitals Vitals: Vital Signs - 24 hr 01/28/22 01/28/22 01/28/22 06:59 07:41 08:04 Temperature 36.8 C Heart Rate 90 72 77 Respiratory 18 26 H 23 Rate Blood Pressure 144/97 H 114/94 H 128/74 O2 Saturation 97 98 98 01/28/22 08:40 Temperature Heart Rate 88 Respiratory 20 Rate Blood Pressure O2 Saturation Oxygen O2 Source Room air - EKG (time done) 0719 Rate: Rate (enter#) (78) Rhythm: NSR [place]: Normal Intervals: Normal DC QRS: Normal Ischemia: Normal ST segments PD MEDICAL DECISION MAKING - ED course ED course: 21-year-old woman who is 39 weeks with an upper respiratory infection but also with chest pain associated with cough. Examination with some wheezing, improved after an albuterol MDI here. Departure - Departure Disposition: 01 Home, Self Care Clinical Impression: Bronchitis, 39 weeks gestation of Condition: Good Record reviewed to determine appropriate education?: Yes Instructions: ED Upper Resp Infec Abx Tx Prescriptions: Albuterol Sulf [Ventolin Hfa Inhaler] 1 - 2 puffs INH Q4HR PRN #1 each PRN Reason: Shortness Of Air/Wheezing Azithromycin [Zithromax] 1 tab PO DAILY #6 tablet Comments: You have a Covid test pending. The results should be done in 48 to 72 hours. We will call with a positive result, the fastest way to get a negative result for confirmation though is to go to the hospital website at [email or web address], click on the my [facility] tab and sign up for the patient portal. Call your doctor to arrange a follow-up appointment, make the next available appointment. In the interim, return anytime if worse or if new symptoms develop.
[2022-01-28 08:45] VITALS: BP 131/74
--- NOTE | 2022-01-29 09:57 | PROCEDURE REPORT ---
- HPI Diagnosis/Indication for NST: Other (presented to ED with chest pain) Current EDU 02/06/22 Gestation 38 Weeks and 5 Days 1 Para 0 Vital Signs Temperature 98.2 F 01/28/22 06:59 Heart Rate 90 01/28/22 06:59 Respiratory Rate 18 01/28/22 06:59 Blood Pressure 144/97 H 01/28/22 06:59 O2 Saturation 97 01/28/22 06:59 Temperature 98.2 F 01/28/22 06:59 Heart Rate 81 01/28/22 08:45 Respiratory Rate 18 01/28/22 08:45 Blood Pressure 131/74 H 01/28/22 08:45 O2 Saturation 98 01/28/22 08:45 If not protocol: Oxygen Flow, liters/minute - NST Procedure NST Procedure Start Date 02/06/22 Start Time 07:42 Stop Time 08:10 Vibroacoustic Stimulation Used No Patient States Movement Yes Moderate probability 6-25 Presence of acceleration Absence of deceleration Baseline 135 Plan: No changes Follow-up at the office and proceed with schedule of induction
== END 2022-01-28 08:51 | disposition home or self-care (01) ==
LOC: ED 06:56
DX: O99.891 Other specified diseases and conditions complicating pregnancy (principal); J40 Bronchitis, not specified as acute or chronic; O99.333 Smoking (tobacco) complicating pregnancy, third trimester; Z3A.39 39 weeks gestation of pregnancy; Z20.822 Contact with and (suspected) exposure to COVID-19
CPT/HCPCS: 93005; 94640; 94664; 99281; 99283

== ENCOUNTER 2022-02-01 07:19 | Inpatient (IN) | payer MEDICAID ==
[2022-02-01] MEDS ORDERED: LABETALOL 20 MG/4 ML SYRINGE IVP PRN ×3 (07:38)
[2022-02-01] MEDS ORDERED: METHYLERGONOVINE 0.2 MG/ML VIAL IM PRN (07:38)
[2022-02-01] MEDS ORDERED: lidocaine 1% 20 ML MDV ID PRN (07:38)
[2022-02-01] MEDS ORDERED: OXYTOCIN/SODIUM CHLORIDE 500 ML IV PRN (07:38)
[2022-02-01] MEDS ORDERED: miSOPROStoL 200 MCG TABLET PR PRN (07:38)
[2022-02-01] MEDS ORDERED: OXYTOCIN 10 UNIT/ML VIAL IM PRN (07:38)
[2022-02-01] MEDS ORDERED: hydrALAZINE INJ 20 MG/ML VIAL IVP PRN ×2 (07:38)
[2022-02-01] MEDS ORDERED: miSOPROStoL 200 MCG TABLET BC PRN (07:38)
[2022-02-01] MEDS ORDERED: SODIUM CHLORIDE FLUSH 0.9% 10 ML SYRINGE IVP PRN (07:38)
[2022-02-01] MEDS ORDERED: NIFEdipine 10 MG CAPSULE PO PRN (07:38)
[2022-02-01] MEDS ORDERED: CARBOPROST TROMETHAMINE 250 MCG/ML AMP IM PRN (07:38)
[2022-02-01] MEDS ORDERED: TRANEXAMIC ACID IN NACL 1,000 MG/100 ML BAG IV PRN (07:38)
[2022-02-01] MEDS ORDERED: miSOPROStoL 100 MCG TABLET BC SCH (09:00)
[2022-02-01 09:17] LABS: BASOPHILS % (AUTO) 0.1 %; EOSINOPHILS # (AUTO) 0.1 10^3/uL (0.0-0.7); EOSINOPHILS % (AUTO) 0.6 %; HCT - HEMATOCRIT 30.8 % (37.0-47.0); HGB - HEMOGLOBIN 9.9 g/dL (12.0-16.0); LYMPHOCYTES # (AUTO) 2.2 10^3/uL (1.5-3.5); LYMPHOCYTES % (AUTO) 24.6 %; MEAN CORPUSCULAR HEMOGLOBIN 27.3 pg (27.0-31.0); MEAN CORPUSCULAR HGB CONC 32.1 g/dL (32.0-36.0); MEAN CORPUSCULAR VOLUME 84.8 fL (81.0-99.0); MEAN PLATELET VOLUME 10.7 fL (7.9-10.8); MONOCYTES # (AUTO) 0.6 10^3/uL (0.0-1.0); MONOCYTES % (AUTO) 7.1 %; NEUTROPHILS # (AUTO) 6.1 10^3/uL (1.5-6.6); NEUTROPHILS % (AUTO) 67.2 %; PLT - PLATELET COUNT 301 10^3/uL (130-450); RED BLOOD COUNT 3.63 10^6/uL (4.20-5.40); RED CELL DISTRIBUTION WIDTH 15.1 % (12.0-15.0)
[2022-02-01 09:39] LABS: MUDS CUTOFF CONCENTRATIONS CUTOFF CONC BELOW:
--- NOTE | 2022-02-01 09:39 | HISTORY & PHYSICAL EXAMINATION ---
Admit History - Visit Reason Visit Reason: Other (Scheduled IOL) - : 1 Parity: 0 Care: positive: [facility] Risk/History: positive: Genital herpes, Labor induction Complications This : positive: Maternal drug use, Other (Anxiety/Depression Varicella- NI Genital HSV Marijuana use in BMI 44) Smoking Status: Former smoker - Mother's Labs Mother's Blood Type: positive: A Mother's RH: positive: Positive GBS: positive: Group B Strep Positive Rubella Status: positive: Immune - Other Maternal History Other Maternal History: Fam hx: mother- alcoholism, depression/anxiety Surg: denies Social: smokes marijuana daily Meds/Allgy - Home Medications Home Medications: Ambulatory Orders Medication Instructions Recorded Confirmed Etonogestrel [Nexplanon] 68 mg SQ ONCE 04/13/19 04/20/19 Amoxicillin 500 mg PO BID #20 capsule 04/20/19 Dexamethasone 10 mg PO ONCE #5 tablet 04/20/19 Ondansetron Odt [Zofran] 4 mg TL Q6H PRN #10 tablet 11/25/19 Furosemide [Lasix] 20 mg PO DAILY #10 tablet 11/26/20 Albuterol Sulf [Ventolin Hfa 1 - 2 puffs INH Q4HR PRN #1 each 01/28/22 Inhaler] Azithromycin [Zithromax] 1 tab PO DAILY #6 tablet 01/28/22 - Allergies Allergies/Adverse Reactions: Allergies Allergy/AdvReac Type Severity Reaction Status Date / Time No Known Drug Allergies Allergy Verified 01/28/22 07:05 Review of Systems - All Other Systems All Other Systems: reports: Reviewed and negative Physical - Abdominal Exam Vital Signs: Temp Pulse Resp BP Pulse Ox O2 Flow Rate 77 18 123/74 99 02/01/22 07:56 02/01/22 07:56 02/01/22 07:56 02/01/22 07:56 Contraction Frequency (min/apart): None Uterine Resting Tone: positive: Soft - Monitoring Heart Rate Baseline: 140 Strip Review: positive: Category I - Presentation Presentation: positive: Vertex (EFW 3600g Placenta anterior) - Vaginal Exam Membranes: positive: Membranes intact Dilation (in cm): 0 Effacement (%): 50 Station: positive: -3 (No lesions noted) Cervical Position: positive: Posterior Plan for Labor - Plan For Labor I expect patient to be DC'd or transferred within 96 hours.: Yes Plan for Labor: 21yo at 39.4w by 21w US presenting for elective scheduled IOL - Admit - Plan for misoprostol q4h complicated by 1. BMI 44 2. 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 Anxiety/Depression- sertraline 100mg qday 4. Varicella- NI 5. Marijuana use in - positive on admission UDS 6. GBS positive- treat in active labor 7. Anemia in - plan for oral or IV iron
[2022-02-01 09:51] LABS: AMPHETAMINE SCREEN,URINE NEGATIVE (NEGATIVE); BARBITURATE SCREEN,UR NEGATIVE (NEGATIVE); BENZODIAZEPINES SCREEN, URINE NEGATIVE (NEGATIVE); COCAINE SCREEN URINE NEGATIVE (NEGATIVE); METHADONE SCREEN, URINE NEGATIVE (NEGATIVE); METHAMPHETAMINES SCREEN, URINE NEGATIVE (NEGATIVE); OPIATE SCREEN, URINE NEGATIVE (NEGATIVE); OXYCODONE SCREEN, URINE NEGATIVE (NEGATIVE); PROPOXYPHENE SCREEN, URINE NEGATIVE (NEGATIVE); THC CANNABINOID SCREEN, URINE POSITIVE (NEGATIVE); TRICYCLIC ANTIDEPRESSANT,URINE NEGATIVE (NEGATIVE)
[2022-02-01] MEDS: miSOPROStoL 100 MCG TABLET BC SCH ×4 (10:12→21:54)
[2022-02-01] MEDS: guaiFENesin/DEXTROMETHORPHAN 10 ML UDC PO PRN (10:12)
--- NOTE | 2022-02-01 18:17 | PROVIDER PROGRESS NOTE ---
Labor Progress Note - Uterine Monitoring Contraction Frequency (min/apart): 4, irregular Contraction Intensity: positive: Mild Uterine Resting Tone: positive: Soft - Monitoring Heart Rate Baseline: 130 Heart Rate Variability: positive: Moderate (6-25 bmp) Accelerations: positive: Present, 15x15 Decelerations: positive: None Strip Review: positive: Category I - Vaginal Exam Dilation (in cm): 1 Effacement (%): 50 Station: -3 Cervical Position: Posterior - Labor Progress Note Labor Progress Note/Additional Text: 21yo at 39.4w admitted for elective IOL - Received misoprostol 50mcg x2. Continue q4, and now at 1800. Plan for 2200 and 0200. Will reassess SVE in am. - GBS prophylaxis when in active labor - Category 1, continue to monitor
[2022-02-01] MEDS: SERTRALINE 50 MG TABLET PO SCH (19:51)
[2022-02-01] MEDS: ACYCLOVIR 200 MG CAPSULE PO SCH (19:56)
[2022-02-01] MEDS ORDERED: ZOLPIDEM 5 MG TABLET PO PRN (23:00)
[2022-02-02] MEDS: fentaNYL 100 MCG/2 ML VIAL IVP PRN ×2 (02:01→03:17)
[2022-02-02] MEDS: ONDANSETRON 4 MG/2 ML VIAL IVP PRN ×2 (03:33→09:45)
[2022-02-02] MEDS ORDERED: LACTATED RINGERS 1,000 ML ONE (03:34)
[2022-02-02] MEDS ORDERED: MORPHINE 10 MG/ML VIAL IM ONE (04:14)
[2022-02-02] MEDS ORDERED: AMPICILLIN 2 GM in SODIUM CHLORIDE 0.9% MINIBAG 100 ML IV SCH (06:45)
--- NOTE | 2022-02-02 08:14 | ANESTHESIA ---
Pre-Anesthesia VS, & Labs - Diagnosis Vaginal delivery - Procedure Epidural for labor analgesia; vaginal delivery Vital Signs: Temp Pulse Resp BP Pulse Ox O2 Flow Rate 36.8 C 77 18 123/74 99 02/01/22 07:48 02/01/22 07:56 02/01/22 07:56 02/01/22 07:56 02/01/22 07:56 Height: 6 ft 1 in Weight (kg): 143.789 kg Body Mass Index: 41.8 BMI Classification: Morbidly Obese - NPO >8 hours - Is Patient ?: Yes - Lab Results Current Lab Results: Laboratory Tests 02/01/22 11:41: Blood Type Recheck A POSITIVE 02/01/22 09:30: Urine Opiates Screen NEGATIVE, Ur Oxycodone Screen NEGATIVE, Urine Methadone Screen NEGATIVE, Ur Propoxyphene Screen NEGATIVE, Ur Ba rbiturates Screen NEGATIVE, Ur Tricyclics Screen NEGATIVE, Ur Phencyclidine Scrn NEGATIVE, Ur Amphetamine Screen NEGATIVE, U Methamphetamines Scrn NEGATIVE, U Benzodiazepines Scrn NEGATIVE, Urine Cocaine Screen NEGATIVE, U Cannabinoids Screen POSITIVE H 02/01/22 08:55: WBC 9.0, RBC 3.63 L, Hgb 9.9 L, Hct 30.8 L, MCV 84.8, MCH 27.3, MCHC 32.1, RDW 15.1 H, Plt Count 301, MPV 10.7, Neut # (Auto) 6.1, Lymph # (Auto) 2.2, [place] # (Auto) 0.6, Eos # (Auto) 0.1, Baso # (Auto) 0.0, Absolute Nucleated RBC 0.00, Nucleated RBC % 0.0 02/01/22 08:55: Blood Type A POSITIVE, Antibody Screen NEGATIVE Fish Bones: 02/01/22 08:55 Home Medications and Allergies Active Medications Acyclovir (Acyclovir 200 Mg Capsule) 400 mg PO Q12H [facility] Last Admin: 02/01/22 19:56 Dose: 400 mg Carboprost Tromethamine (Carboprost Tromethamine 250 Mcg/Ml Amp) 250 mcg IM .ONCE PRN PRN Reason: Hemorrhage Fentanyl (Fentanyl 100 Mcg/2 Ml Vial) 50 mcg IVP Q1H PRN PRN Reason: Severe Pain (score 7-10) Last Admin: 02/02/22 03:17 Dose: 50 mcg Guaifenesin (Guaifenesin/Dextromethorphan 10 Ml Udc) 10 ml PO Q6HR PRN PRN Reason: Cough Last Admin: 02/01/22 10:12 Dose: 10 ml Hydralazine HCl (Hydralazine Inj 20 Mg/Ml Vial) 5 - 10 mg IVP Q20M PRN; Protocol PRN Reason: SBP> or= 160 OR DBP> or= 110 Hydralazine HCl (Hydralazine Inj 20 Mg/Ml Vial) 10 mg IVP .ONCE PRN; Protocol PRN Reason: SBP> or= 160 OR DBP> or= 110 Oxytocin/Sodium Chloride (Pitocin/Sodium Chloride) 500 mls @ 999 mls/hr IV PRN PRN; Protocol PRN Reason: POST- HEMORR PREVENTION Tranexamic Acid (Tranexamic 1,000 Mg/100ml-Nacl) 1,000 mg in 100 mls @ 600 mls/hr IV Q30M PRN PRN Reason: EBL >1200mL and within 3hr Lactated Ringer's (Lr) 1,000 mls @ 125 mls/hr IV .Q8H SERGEY Ampicillin Sodium 1 gm/ Sodium (Chloride) 100 mls @ 100 mls/hr IV Q4HR SERGEY Labetalol HCl (Labetalol 20 Mg/4 Ml Syringe) 20 - 80 mg IVP Q10M PRN; Protocol PRN Reason: SBP> or= 160 OR DBP> or= 110 Labetalol HCl (Labetalol 20 Mg/4 Ml Syringe) 20 mg IVP .ONCE PRN; Protocol PRN Reason: SBP> or= 160 OR DBP> or= 110 Labetalol HCl (Labetalol 20 Mg/4 Ml Syringe) 20 - 40 mg IVP Q10M PRN; Protocol PRN Reason: SBP> or= 160 OR DBP> or= 110 Lidocaine HCl (Lidocaine 1% 20 Ml Mdv) 20 ml ID .ONCE PRN PRN Reason: PERINEAL REPAIR Stop: 02/04/22 07:39 Methylergonovine Maleate (Methylergonovine 0.2 Mg/Ml Vial) 0.2 mg IM .ONCE PRN PRN Reason: Hemorrhage Misoprostol (Misoprostol 200 Mcg Tablet) 600 mcg BC .ONCE PRN PRN Reason: Hemorrhage Misoprostol (Misoprostol 200 Mcg Tablet) 800 mcg DE .ONCE PRN PRN Reason: Hemorrhage Misoprostol (Misoprostol 100 Mcg Tablet) 50 mcg BC Q4H [facility] Last Admin: 02/01/22 21:54 Dose: 50 mcg Nifedipine (Nifedipine 10 Mg Capsule) 10 - 20 mg PO Q20M PRN; Protocol PRN Reason: SBP> or= 160 OR DBP> or= 110 Ondansetron HCl (Ondansetron 4 Mg/2 Ml Vial) 4 mg IVP Q6HR PRN PRN Reason: Nausea / Vomiting Last Admin: 02/02/22 03:33 Dose: 4 mg Oxytocin (Oxytocin 10 Unit/Ml Vial) 10 unit IM .ONCE PRN PRN Reason: Step One if no IV access. Sertraline HCl (Sertraline 50 Mg Tablet) 100 mg PO DAILY [facility] Last Admin: 02/01/22 19:51 Dose: Not Given Sodium Chloride (Sodium Chloride Flush 0.9% 10 Ml Syringe) 10 ml IVP PRN PRN PRN Reason: NEEDED PER PROVIDER ORDERS Sodium Chloride (Sodium Chloride Flush 0.9% 10 Ml Syringe) 10 ml IVP Q8H [facility] Zolpidem Tartrate (Zolpidem 5 Mg Tablet) 5 mg PO QPM PRN PRN Reason: Insomnia Last Admin: 02/01/22 23:08 Dose: 5 mg Etonogestrel [Nexplanon] 68 mg SQ ONCE 04/13/19 Allergies/Adverse Reactions: Allergies Allergy/AdvReac Type Severity Reaction Status Date / Time No Known Drug Allergies Allergy Verified 01/28/22 07:05 Anes History & Medical History - Anesthetic History Anesthesia Complications: reports: No previous complications Family history of Anesthesia Complications: Denies Family history of Malignant Hyperthermia: Denies - Medical History Cardiovascular: reports: Murmur Smoking Status: Former smoker History of Cancer?: No - Obstetrical History : 1 Parity: 0 Events: reports: Genital herpes, Labor induction Complications: reports: Maternal drug use, Other (Anxiety/Depression Varicella- NI Genital HSV Marijuana use in BMI 44) Exam General: Alert, Oriented x3, Cooperative, No acute distress Dental: WNL Mouth Openin Fingerbreadth Neck Mobility: Normal Mallampati classification: I Thyromental Distance: 4-6 cm Mental/Cognitive Status: Alert/Oriented X3, Normal for patient Plan Anesthesia Type: Epidural Consent for Procedure(s) Verified and Reviewed: Yes Code Status: Attempt Resuscitation ASA classification: 2-Mild systemic disease Is this case an emergency?: No
[2022-02-02] MEDS: LACTATED RINGERS 1,000 ML IV SCH ×2 (08:17→10:56)
[2022-02-02] MEDS: SODIUM CHLORIDE FLUSH 0.9% 10 ML SYRINGE IVP SCH ×2 (08:30→10:37)
[2022-02-02] MEDS: ACYCLOVIR 200 MG CAPSULE PO SCH ×2 (08:30→12:49)
[2022-02-02] MEDS ORDERED: NALBUPHINE 10 MG/ML AMP IVP PRN (08:57)
[2022-02-02] MEDS ORDERED: ROPIVACAINE 0.2% 200 MG/100 ML BAG EP PRN (08:57)
[2022-02-02] MEDS ORDERED: NALOXONE 0.4 MG/ML VIAL IVP PRN (08:57)
[2022-02-02] MEDS ORDERED: diphenhydrAMINE INJ 50 MG/ML VIAL IVP PRN (08:57)
[2022-02-02] MEDS ORDERED: ePHEDrine 50 MG/ML VIAL IVP PRN (08:57)
[2022-02-02] MEDS: SERTRALINE 50 MG TABLET PO SCH (09:00)
[2022-02-02] MEDS ORDERED: OXYTOCIN/SODIUM CHLORIDE 500 ML IV ONE (09:44)
--- NOTE | 2022-02-02 09:49 | PROVIDER PROGRESS NOTE ---
Labor Progress Note - Uterine Monitoring Uterine Monitoring Mode: positive: External toco Contraction Frequency (min/apart): 3-6 Contraction Intensity: positive: Moderate Uterine Resting Tone: positive: Soft - Monitoring Monitor Mode: positive: External ultrasound Heart Rate Baseline: 120 Heart Rate Variability: positive: Moderate (6-25 bmp) Accelerations: positive: Present, 15x15 Decelerations: positive: None Strip Review: positive: Category I - Vaginal Exam Dilation (in cm): 5 Effacement (%): 90 Station: -2 Cervical Position: Posterior - Labor Progress Note Labor Progress Note/Additional Text: Patient doing well. Was sleeping after epidural. Much more comfortable. Started vomiting and assessed and found of cervical exam of 5/90/-2. Made cervical change overnight, but at approximately 0400 had cervical exam that felt 5 to 6 cm, but not competent and patient comfortable. As she has not changed since then, will assume hypotonic uterine contractions. We will start oxytocin at this time. Ondansetron for nausea relief. Category 1 tracing.
[2022-02-02] MEDS ORDERED: OXYTOCIN/SODIUM CHLORIDE 500 ML IV SCH (10:00)
[2022-02-02] MEDS ORDERED: AMPICILLIN 1 GM in SODIUM CHLORIDE 0.9% MINIBAG 100 ML IV SCH ×5 (11:00→13:00)
[2022-02-02] MEDS ORDERED: DOCUSATE SODIUM 100 MG CAPSULE PO PRN (14:44)
[2022-02-02] MEDS ORDERED: SIMETHICONE CHEW 80 MG TABLET PO PRN (14:44)
--- NOTE | 2022-02-02 14:48 | DELIVERY NOTE ---
Delivery Note - Labor Labor: positive: Augmented by oxytocin - Delivery Method Delivery Method: positive: Spontaneous vaginal delivery - Cervical Ripening Method Cervical Ripening Method: positive: Misoprostil - Presentation Presentation: positive: CHERIE - right occiput anterior - Nuchal Cord Nuchal Cord: positive: None - Anesthetic Anesthetic Type: - Amniotic Fluid Description Amniotic Fluid Description: positive: Clear - Episiotomy Type Episiotomy Type: positive: None - Laceration Laceration: positive: 2nd degree, Periurethral - Suture Suture Type: positive: Vicryl Suture Size: positive: 3-0 - Delivery Outcome Delivery Outcome: positive: Livebirth - [place]: positive: Placed in direct skin contact with mother, Stimulated, Warmed, [place] used sex: positive: Female - Placenta Placenta: positive: Intact - Post Delivery Events Post Delivery Events: positive: No post delivery events - Delivery Comments (Free Text/Narrative) Delivery Comments (Free Text/Narrative): Preoperative Diagnoses 39 weeks gestation Induction of labor Postoperative Diagnoses Same Delivered Labor summary: Patient received misoprostol for cervical ripening. She received an epidural for pain control. She had spontaneous rupture of membranes and is observed with minimal change, so oxytocin was initiated. She progressed to complete and is ready to push. Delivery Summary Patient was placed in the dorsal lithotomy position. Upon maternal pushing the head was delivered atraumatically followed by the anterior shoulder, posterior shoulder, then the remainder of the infant's body. A female was delivered with APGARS of 9 at 1 minute and 9 at 5 minutes. The infant was placed on its mother's chest . After the cord finished pulsating, the umbilical cord was clamped times two and cut. The placenta delivered intact with three vessel cord. Placenta was not sent to pathology. Thirty units of Pitocin were added to the IV fluid and allowed to run freely. Uterine massage was performed until uterus was deemed firm. Upon the perineal inspection, a second-degree midline laceration was noted and repaired with a running 3-0 Vicryl in the usual fashion. A periurethral lesion was also noted risk of bleeding was repaired first by placing a straight catheter into the urethra then the laceration was repaired with a 3-0 chromic suturre in a running fashion. The catheter was then removed. Upon re-inspection the patient was hemostatic. Uterus again massaged and found to be firm. Needle and sponge counts were correct. Patient was stable and allowed to recover in L&D room. was stable and remained in room with mother. weight is pending at this time.
[2022-02-02] MEDS ORDERED: LACTATED RINGERS 1,000 ML IV SCH (15:00)
[2022-02-02] MEDS: IBUPROFEN 600 MG TABLET PO SCH ×2 (15:12→21:25)
[2022-02-02] MEDS: ACETAMINOPHEN 500 MG TABLET PO SCH (18:35)
[2022-02-03] MEDS: ACETAMINOPHEN 500 MG TABLET PO SCH ×2 (03:05→17:36)
[2022-02-03] MEDS: IBUPROFEN 600 MG TABLET PO SCH ×3 (03:27→20:34)
[2022-02-03] MEDS: SERTRALINE 50 MG TABLET PO SCH (08:36)
--- NOTE | 2022-02-03 10:51 | PROVIDER PROGRESS NOTE ---
Subjective - Prog Note Date Prog Note Date: 02/03/22 Prog Note Time: 10:57 - Subjective Pt reports feeling: Improved Subjective: Subjective Patient reports she is doing well. Lochia appropriate. Denies heavy bleeding. Ambulating. Pelvic and abdominal pain well-controlled. Tolerating oral intake. Diet: Regular. Voiding without difficulty. Passing flatus. Denies BM. Patient is bonding with baby in room Breast feeding going well. Denies feeling lightheaded, dizzy or excessively fatigued. Objective General: Alert, oriented, no apparent distress. Cardiovascular: Regular rate. Regular rhythm. Lungs: No increased work of breathing. Abdomen: Uterus firm. Below umbilicus. No guarding or rebound. Extremities: No significant swelling. No calf pain or tenderness. No cords palpated. Assessment and Plan day 1. -Routine care -Anticipate discharge tomorrow Depression: -Continue home medications -Discussed increased risk of depression Anemia of -H&H pending -Asymptomatic at this time. Objective - Vital Signs/Intake & Output Vital Signs: Vital Signs x48h Temp Pulse Resp BP Pulse Ox 02/03/22 07:56 98.1 F 82 16 133/66 H 99 02/03/22 05:45 97.9 F 67 16 121/57 L 96 Intake & Output: Intake & Output 01/31/22 02/01/22 02/02/22 02/03/22 23:59 23:59 23:59 23:59 Intake Total 3750.266 Output Total 1100 Balance 2650.266 - Lab Results Fish Bones: 02/01/22 08:55
[2022-02-03 11:08] LABS: HCT - HEMATOCRIT 24.4 % (37.0-47.0); HGB - HEMOGLOBIN 7.7 g/dL (12.0-16.0)
--- NOTE | 2022-02-03 11:08 | Discharge Plan ---
Discharge Plan Problem Reviewed?: Yes Disposition: Home, Self Care Condition: Good Prescriptions: Acetaminophen [Acetaminophen Extra Strength] 1,000 mg PO Q8H PRN #60 tablet PRN Reason: Pain Docusate Sodium 100Mg Capsule [Colace 100Mg Capsule] 100 - 200 mg PO BID PRN #60 cap PRN Reason: Constipation Ferrous Sulfate 325 mg PO BID #60 tab Ibuprofen [Motrin] 600 mg PO Q6H PRN #30 tab PRN Reason: Pain Diet: Regular Activity Restrictions: Additional Comments Shower Restrictions: No Driving Restrictions: Yes (For two weeks) Instruction Topics: Vaginal After No Smoking: If you smoke, Please STOP! Call for help. Follow-up with: Chandler Brown MD [Provider Admit Priv/Credential] -
[2022-02-03] MEDS ORDERED: CALCIUM CARBONATE CHEW 500 MG TABLET PO SCH ×2 (12:00→13:00)
[2022-02-03] MEDS: ACYCLOVIR 200 MG CAPSULE PO SCH (17:37)
[2022-02-03] MEDS: guaiFENesin/DEXTROMETHORPHAN 10 ML UDC PO PRN (20:35)
[2022-02-04] MEDS ORDERED: SERTRALINE 50 MG TABLET PO SCH (09:00)
[2022-02-04 09:18] VITALS: BP 121/76
--- NOTE | 2022-02-04 10:15 | DISCHARGE SUMMARY ---
Discharge Summary Admit Date: 02/01/22 Discharge Date: 02/04/22 Discharging Provider: Chandler Brown MD Code Status: Attempt Resuscitation Condition at Discharge: Good Discharge Disposition: 01 Home, Self Care - DIAGNOSES Admission Diagnoses: 39 weeks gestation Induction of labor Anxiety Marijuana use in GBS positive Anemia of Discharge Diagnoses with Status of Each Condition: 39 weeks gestation: Delivered Anemia : Stable Anxiety: Stable GBS positive: Resolved Marijuana use in : Stable - HPI History of Present Illness: Subjective Patient reports she is doing well. Lochia appropriate. Denies heavy bleeding. Ambulating. Pelvic and abdominal pain well-controlled. Tolerating oral intake. Diet: Regular. Voiding without difficulty. Passing flatus. Denies BM. Patient is bonding with baby in room Breast feeding going well. Denies feeling lightheaded, dizzy or excessively fatigued. Objective General: Alert, oriented, no apparent distress. Cardiovascular: Regular rate. Regular rhythm. Lungs: No increased work of breathing. Abdomen: Uterus firm. Below umbilicus. No guarding or rebound. Extremities: No significant edema. No cords palpated. - HOSPITAL COURSE Hospital Course: Patient is admitted at 39 weeks gestation for induction of labor. She received misoprostol for cervical ripening then had spontaneous rupture of membranes. She had an epidural for pain control then was started on oxytocin. She had a qu ick second stage of labor and had a spontaneous vaginal delivery with a second- degree midline laceration and a periurethral laceration that was repaired at time of delivery. course was unremarkable. She does have a follow- up in 4 days and will follow-up on her mood. weight: 3989 g Admitting provider: Rebecca Vargas DO Delivering provider: Chandler Brown MD - ALLERGIES Allergies/Adverse Reactions: Allergies Allergy/AdvReac Type Severity Reaction Status Date / Time No Known Drug Allergies Allergy Verified 01/28/22 07:05 - MEDICATIONS Home Medications: Ambulatory Orders Medication Instructions Recorded Confirmed Etonogestrel [Nexplanon] 68 mg SQ ONCE 04/13/19 04/20/19 Amoxicillin 500 mg PO BID #20 capsule 04/20/19 Dexamethasone 10 mg PO ONCE #5 tablet 04/20/19 Ondansetron Odt [Zofran] 4 mg TL Q6H PRN #10 tablet 11/25/19 Furosemide [Lasix] 20 mg PO DAILY #10 tablet 11/26/20 Albuterol Sulf [Ventolin Hfa 1 - 2 puffs INH Q4HR PRN #1 each 01/28/22 Inhaler] Azithromycin [Zithromax] 1 tab PO DAILY #6 tablet 01/28/22 Acetaminophen [Acetaminophen Extra 1,000 mg PO Q8H PRN #60 tablet 02/03/22 Strength] Docusate Sodium 100Mg Capsule 100 - 200 mg PO BID PRN #60 cap 02/03/22 [Colace 100Mg Capsule] Ferrous Sulfate 325 mg PO BID #60 tab 02/03/22 Ibuprofen [Motrin] 600 mg PO Q6H PRN #30 tab 02/03/22 - LABS Result Diagrams: 02/03/22 10:59 - FOLLOW UP Follow Up: In 1 week with Chandler Brown MD at [facility] - TIME SPENT Time Spent in Discharge (Minutes): 30
--- NOTE | 2022-02-04 10:28 | Labor Flowsheet ---
Labor Flowsheet Datetime Report Generated by CPN: 02/04/2022 10:28 Datetime: 02/04/2022 08:33 VITAL SIGNS NBP Sys/Brittani/Mean (mmHg): 125 : 60 : 73 Pulse: 82 Datetime: 02/03/2022 16:55 SpO2 (%): 100 Datetime: 02/02/2022 15:31 Patient Care Comments: FESTUS removed, black tip intact Datetime: 02/02/2022 14:39 Stage of : Recovery Datetime: 02/02/2022 13:30 UTERINE ACTIVITY Monitor Mode: External Frequency (min): 2-3 Quality: Moderate Duration (sec): 50-80 Pattern: Normal: <= 5 Contractions in 10 Minutes Resting Tone (Palpate): Relaxed ASSESSMENT A Monitor Mode: External US FHR Baseline Rate : 115 Variability: Moderate 6-25 bpm Accelerations: None Decelerations: Prolonged Category: Category II Comments: audible decel in 80 Datetime: 02/02/2022 13:19 FHR Baseline Changes: No Baseline Change Datetime: 02/02/2022 13:16 VAGINAL EXAM Dilatation (cm): 10.0 Effacement (%): 100 Station: 2 Exam by: RN Rosalina Datetime: 02/02/2022 13:10 Communication Comments: emesis Datetime: 02/02/2022 13:05 Respirations: 18 Temperature (C): 36.6 LaborFlag: Labor Datetime: 02/02/2022 12:58 MEDICATIONS Pitocin (milliunits): Increased to @ 7 Datetime: 02/02/2022 12:15 Pitocin Checklist: At Least 1 Acceleration of 15 bpm x 15 Seconds in 30 Minutes or Adequate Variabi lity; No More than 1 Late Deceleration Occurred in Past 30 Minutes; No More than 2 Variable Decelerat ions > 60 Seconds in Duration and decreasing >60 bpm in 30 minutes; No More than 5 Uterine Contractio ns in 10 Minutes for any 20 Minute Interval Datetime: 02/02/2022 12:11 Monitor Interventions for UA: [place] Adjusted Datetime: 02/02/2022 12:02 Pain Assessment Comments: c/o back pain Datetime: 02/02/2022 11:31 PATIENT CARE IV/Blood Work: IV Bolus Started Datetime: 02/02/2022 11:23 Monitor Interventions for FHR: Ultrasound Adjusted Datetime: 02/02/2022 10:30 Pain Presence: None/Denies Pain Type: Contraction Pain Coping: Sleeping ANESTHESIA Anesthesia Plans: Epidural Anesthesia Level Check: T10- Umbilicus Datetime: 02/02/2022 10:00 Temperature Route: Oral Datetime: 02/02/2022 09:49 Vaginal Bleeding: None Cervix, Consistency: Soft Cervix, Position: Midposition Antiemetics/Antacids: Zofran (mg) @ 4 Datetime: 02/02/2022 09:43 MATERNAL ASSESSMENT Nausea/Vomiting: Present Patient Position/Activity: Semi-Fowlers I/O Interventions: Sharif Cath Inserted Datetime: 02/02/2022 09:30 Membrane Status: Ruptured Oxygen Method: Room Air Datetime: 02/02/2022 08:08 PAIN Pain Scale: 0 Datetime: 02/02/2022 07:53 Pain Relief Measures: Epidural Given Datetime: 02/02/2022 07:34 Epidural Procedure: Test Dose Datetime: 02/02/2022 07:30 Comfort Measures: Family Support Datetime: 02/02/2022 07:21 PROCEDURE TIME OUT Procedure Verify: Correct Patient Identity; Accurate Procedure Consent Form; Agreement on Procedure to be Done; Correct Patient Position Epidural Positioning: Sitting Anesthesia Comments: [id number] Datetime: 02/02/2022 06:15 Membranes Rupture Method: Spontaneous Amniotic Fluid Color: Clear Amniotic Fluid Amount: Moderate Amniotic Fluid Odor: Normal Datetime: 02/02/2022 04:30 Contraction Comments: Pt. feeling contractions, difficulty coping, morphine given per provider Datetime: 02/02/2022 04:17 COMMUNICATION Provider Notified (Name): Dr. Cayabyab Datetime: 02/02/2022 02:01 Analgesics/Sedatives: Fentanyl (mcg) @ 50 Medication Comments: pain at 8/10 during contractions Datetime: 02/02/2022 00:45 Pain Location: Abdomen; Back Datetime: 02/01/2022 21:55 Cervical Ripening Agents: Cytotec @ Datetime: 02/01/2022 18:26 Cervical Ripening Agents Other: Buccal Datetime: 02/01/2022 11:41 Membranes Ruptured Date/Time: 02/02/2022 06:15 Datetime: 02/01/2022 11:32 PRE-INDUCTION CHECKLIST Orders on Chart: Yes H Record Available: Yes Indication Charted: Yes Adequate Pelvis Charted: Yes EFW Documented: No Gestational Age Documented: Yes Consent Signed and on Chart: Yes Provider with C/S Priv Aware: Yes Status of Cervix Documented: Yes Presentation Documented: Yes 30min of Monitoring Prior: Yes 2 Accels of 15X15 Present: Yes No Late Decels Present: Yes Less than 2 Variable Decels: Yes Pt Meets Criteria for Induction: Yes Datetime: 02/01/2022 08:29 TEACHING Instructional Method: Verbal Plan of Care: Plan of Care Discussed; Induction Unit Routine: [place] to Room; Call [place]; Bed; Visiting Policy; Infant Security; Unit Personnel; Kennedy ojeda; Monitoring; Safety/Fall Risk Prevention; Diet/Nutrition Services; Medications Labor/Induction: Cervical Ripening; Induction Pain Management: Epidural; PRN Medications; Comfort Measures Medications: Antibiotics; Cervical Ripening; Pitocin
== END 2022-02-04 13:15 | disposition home or self-care (01) | DRG 806 ==
LOC: WFO 07:19 → FBP 07:21 → WFO 07:37 → FBP 07:38 → OBSVTOIN 02-02 06:27
PROVIDERS: ADMIT Obstetrics & Gynecology; ATTEND Obstetrics & Gynecology
PROC: 10E0XZZ Delivery of Products of Conception, External Approach (ICD-10-PCS; principal; 2022-02-02)
PROC: 0KQM0ZZ Repair Perineum Muscle, Open Approach (ICD-10-PCS; 2022-02-02)
PROC: 0UQMXZZ Repair Vulva, External Approach (ICD-10-PCS; 2022-02-02)
DX: O99.02 Anemia complicating childbirth (principal); O98.32 Other infections with a predominantly sexual mode of transmission complicating childbirth; Z37.0 Single live birth; O99.324 Drug use complicating childbirth; O70.1 Second degree perineal laceration during delivery; O71.82 Other specified trauma to perineum and vulva; F12.90 Cannabis use, unspecified, uncomplicated; O99.824 Streptococcus B carrier state complicating childbirth; O99.344 Other mental disorders complicating childbirth; F41.9 Anxiety disorder, unspecified; F32.A Depression, unspecified; O99.214 Obesity complicating childbirth; E66.01 Morbid (severe) obesity due to excess calories; Z3A.39 39 weeks gestation of pregnancy; A60.09 Herpesviral infection of other urogenital tract; Z87.891 Personal history of nicotine dependence
CPT/HCPCS: 36415; 80306; 85014; 85018; 85025; 86850; 86900; 86901; 96372; 96374; 96375; 96376; A9270; J7120

== ENCOUNTER 2022-06-19 08:00 | Outpatient (CLI) | payer MEDICAID ==
[2022-06-19 16:11] LABS: BILIRUBIN,URINE NEGATIVE (NEGATIVE); GLUCOSE, URINE (UA) NEGATIVE (NEGATIVE); KETONES,URINE (UA) NEGATIVE (NEGATIVE); LEUKOCYTE ESTERASE, URINE NEGATIVE (NEGATIVE); NITRITE,URINE NEGATIVE (NEGATIVE); OCCULT BLOOD,URINE NEGATIVE (NEGATIVE); PROTEIN,URINE NEGATIVE (NEGATIVE); UROBILINOGEN,URINE 0.2 (NORMAL) E.U./dL (NORMAL)
[2022-06-19 16:18] LABS: BACTERIA,URINE None Seen /HPF (None Seen); CLARITY,URINE CLEAR (CLEAR); RBC,URINE None Seen /HPF (0-5); SQUAMOUS EPITHELIAL CELL,UR MANY Squamous (<= Few); WBC,URINE 0-3 /HPF (0-5)
== END 2022-06-19 23:59 | disposition home or self-care (01) ==
LOC: LAB.WC 08:00
PROVIDERS: ATTEND Obstetrics & Gynecology
DX: Z34.90 Encounter for supervision of normal pregnancy, unspecified, unspecified trimester (principal)
CPT/HCPCS: 81001; 87086

== ENCOUNTER 2022-06-25 09:32 | Outpatient (CLI) | payer MEDICAID ==
--- NOTE | 2022-06-25 15:47 | Ultrasound Report ---
PROCEDURE: OB First Trimester w/TV INDICATIONS: POSITIVE TEST OUTSIDE/PRIOR DATING DATA: Last menstrual period (LMP): 03/29/2022. LMP-based estimated date of delivery (MIKO): 01/03/2023. First dating scan (date and location): 06/25/2022, current study. Estimated date of delivery (MIKO) from first dating scan: Not applicable. TECHNIQUE: Real-time scanning was performed of the fetus and maternal pelvic organs, with image documentation. Endovaginal scanning was also performed to better visualize the fetus and maternal ovaries. COMPARISON: None FINDINGS: There are 2 gestational sacs by a thick membrane. There is a single pole in each gest ational sac. Fetus A, closer to the cervix has a crown-rump length of 1.75 cm corresponding to an 8 w [place] 2 day gestation. There is no detectable cardiac activity. Fetus B has a crown-rump length of 2.3 cm corresponding to a 9 week 0 day gestation. No detectable cardiac activity. There is a subchorionic hemorrhage adjacent to gestational sac a immediately above the internal cervi roderick os which measures 3.9 x 1.4 x 1.9 cm. The cervix is closed. Maternal ovaries are within normal limits. These are not well seen by transvaginal imaging. IMPRESSION: 1. Nonviable diamniotic dichorionic twin . 2. Small subchorionic hemorrhage, closed cervix. 3. Preliminary report conveyed to the office of the ordering provider by the pepper picker. Reviewed by: June Moe MD on 06/25/2022 3:46 PM PDT Approved by: June Moe MD on 06/25/2022 3:46 PM PDT Station ID: [id number]
== END 2022-06-25 09:33 | disposition home or self-care (01) ==
LOC: DI 09:32
PROVIDERS: ATTEND Obstetrics & Gynecology
DX: O36.4XX1 Maternal care for intrauterine death, fetus 1 (principal); O36.4XX2 Maternal care for intrauterine death, fetus 2; O30.041 Twin pregnancy, dichorionic/diamniotic, first trimester; Z3A.08 8 weeks gestation of pregnancy